=== PATIENT | female | born 1980 | race African-American/Black ===

== ENCOUNTER 2020-07-18 04:33 | Day surgery (SDC) | payer OTHER ==
[2020-07-15 14:47] VITALS: BMI 36.3
[2020-07-18] MEDS ORDERED: MIDAZOLAM HCL 2 MG/2 ML SINGLE DOSE VIAL ONE (15:10)
[2020-07-18] MEDS ORDERED: PROPOFOL 20 ML ONE (15:10)
[2020-07-18] MEDS ORDERED: ONDANSETRON 4 MG/2 ML VIAL IVPUSH PRN ×2 (15:18→18:38)
[2020-07-18] MEDS ORDERED: oxyCODONE HCL 5 MG TABLET PO PRN ×2 (15:18→18:38)
[2020-07-18] MEDS ORDERED: PROMETHAZINE HCL 25 MG/1 ML VIAL IVPUSH PRN (15:18)
[2020-07-18] MEDS ORDERED: LACTATED RINGERS SOLUTION 1,000 ML IV SCH (15:30)
[2020-07-18] MEDS ORDERED: RHO(D) IMMUNE GLOBULIN 1,500 UNIT DISP.SYRIN IM ONE (16:06)
[2020-07-18] MEDS ORDERED: ceFAZolin SODIUM 1 GM VIAL IVPB ONE (16:10)
[2020-07-18 17:38] VITALS: TEMP 97.7
[2020-07-18] MEDS ORDERED: ONDANSETRON 4 MG/2 ML VIAL ONE (18:06)
[2020-07-18 18:16] VITALS: BP 126/69; PULSE 86
[2020-07-18] MEDS ORDERED: IBUPROFEN 600 MG TABLET (FP) PO PRN (18:38)
[2020-07-18] MEDS ORDERED: IBUPROFEN 800 MG/8 ML IJ IVPB PRN (18:38)
[2020-07-18] MEDS ORDERED: ELECTROLYTE-148 SOLN 1,000 ML IV SCH (18:45)
== END 2020-07-18 19:50 | disposition home or self-care (01) ==
LOC: JASU-SURG 04:33
PROVIDERS: ATTEND Obstetrics & Gynecology
PROC: 10D17ZZ Extraction of Products of Conception, Retained, Via Natural or Artificial Opening (ICD-10-PCS; principal; 2020-07-18 15:30)
DX: O02.1 Missed abortion (principal); Z3A.08 8 weeks gestation of pregnancy
CPT/HCPCS: 86850; 86900; 86901; 86999; 88305-TC; 94760